=== PATIENT | female | born 1935 | race African-American/Black ===

== ENCOUNTER 2019-07-04 10:23 | Inpatient (IN) ==
[2019-07-04] MEDS: ALBUTEROL/IPRATROPIUM 3 ML NEB RESP TX PRN (13:40)
[2019-07-04] MEDS ORDERED: ONDANSETRON 4 MG/2 ML VIAL IV PRN (13:42)
[2019-07-04] MEDS ORDERED: ACETAMINOPHEN 325 MG TABLET PO PRN (13:42)
[2019-07-04] MEDS ORDERED: MORPHINE 4 MG/1 ML VIAL IV PRN ×2 (13:42→13:45)
[2019-07-04] MEDS ORDERED: cefOXitin 2,000 MG in SYRINGE 1 EACH IV ONE (13:42)
[2019-07-04] MEDS ORDERED: hydrALAZINE 20 MG/1 ML VIAL IV PRN (13:42)
[2019-07-04 15:08] LABS: Apearance,Urine CLOUDY (Clear); Bacteria,Urine Occasional /HPF (Few); Bilirubin,Urine Negative (Negative); Blood, Urine Small mg/dL (Negative); Glucose,Urine (UA) Negative (Negative); Ketones,Urine Negative (Negative); Mucus,Urine Occasional /LPF (Occasional); Nitrite,Urine Negative (Negative); Protein,Urine 100 MG/DL; RBC,Urine 1 /HPF (0-4); Urine Color Yellow (Yellow); Urine Specific Gravity 1.012 (1.001-1.035); Urine Urobilinogen < 2.0 EU/DL (0.2-1.0); WBC,Urine 1 /HPF (0-6)
[2019-07-04] MEDS ORDERED: propofoL 200 MG/20 ML VIAL IV ONE (16:00)
[2019-07-04] MEDS ORDERED: HYDROCORTISONE 100 MG VIAL ONE (16:01)
[2019-07-04] MEDS ORDERED: ETOMIDATE 40 MG/20 ML VIAL IV ONE (16:01)
[2019-07-04] MEDS ORDERED: LIDOCAINE 2% 5 ML VIAL ONE (16:01)
[2019-07-04] MEDS ORDERED: fentaNYL 100 MCG/2 ML VIAL ONE (16:01)
[2019-07-04] MEDS ORDERED: SEVOFLURANE 1 UNIT/15 MINUTE INH ONE (16:01)
[2019-07-04] MEDS ORDERED: PHENYLEPHRINE DRIP 20 MG/250 ML PREMIX IV ONE (16:01)
[2019-07-04] MEDS ORDERED: ROCURONIUM 100 MG/10 ML VIAL IV ONE (16:02)
[2019-07-04] MEDS ORDERED: LACTATED RINGERS 1,000 ML IV ONE (16:02)
[2019-07-04] MEDS: PANTOPRAZOLE 40 MG VIAL IV SCH (16:02)
[2019-07-04] MEDS ORDERED: SODIUM CHLORIDE 0.9% 1,000 ML IV ONE (16:02)
[2019-07-04] MEDS: LACTATED RINGERS 1,000 ML IV SCH (16:02)
[2019-07-04 16:42] LABS: ABG Base Excess -2.9 MMOL/L (-2.5-2.5); ABG Oxygen Saturation 99.7 % (95-100); ABG PCO2 39.3 MM HG (35-48); ABG TCO2 20.4 MMOL/L (23-27); Allen Test Positive; Pt O2 Delivery Device Ventilator
[2019-07-04 17:55] LABS: Basophils % 0.2 % (0.0-0.8); Hematocrit 31.2 VOL% (35.7-47.0); Hemoglobin 9.7 GM/DL (12.0-16.0); Immature Granulocytes % 1.2 %; Immature Granulocytes Absolute 0.15 #; Lymphocytes # 0.1 10*3/uL (1.4-4.0); Lymphocytes % 0.9 % (21.3-54.2); Mean Corpuscular HGB Conc 31.1 GM/DL (32-36); Mean Platelet Volume 12.3 FL (9.6-12.0); NRBC # 0.02 10*3/uL; Neutrophils % 95.7 % (38.7-73.9); Platelet Count 171 T/CUMM (130-400); Red Blood Count 3.32 MC/CUMM (3.8-5.5); Red Cell Distribution Width 14.5 % (9.3-17.3); White Blood Count 12.9 T/CUMM (4-12)
[2019-07-04 18:03] LABS: PT Patient Result 10.6 SECS (9.6-12.2)
[2019-07-04 18:15] LABS: Band Neutrophils 3 % (0-10); Lymphocytes 1 % (20-55); Platelet Estimate Normal; Segmented Neutrophils 95 % (50-85); Total Cells Counted 100
[2019-07-04 18:24] LABS: Bilirubin,Total 1.2 MG/DL (0.2-1.0); Osmolality,Calculated 298.1 MOS/KG (273-304); Total Protein 5.9 G/DL (6.4-8.3)
[2019-07-04] MEDS: MORPHINE 4 MG/1 ML VIAL IV PRN (23:20)
[2019-07-05] MEDS ORDERED: GLUCAGON 1 MG VIAL IM PRN (00:37)
[2019-07-05] MEDS: INSULIN REGULAR 100 UNIT/ML SUBCUT SCH ×5 (01:07→23:20)
[2019-07-05] MEDS: LACTATED RINGERS 1,000 ML IV SCH (02:33)
[2019-07-05 04:36] LABS: ABG Base Excess -2.4 MMOL/L (-2.5-2.5); ABG HCO3 22.2 MMOL/L (20-26); ABG Oxygen Saturation 97.6 % (95-100); ABG PCO2 37.3 MM HG (35-48); ABG PH 7.393 (7.35-7.45); ABG PO2 104.6 MM HG (80-95); ABG TCO2 23.4 MMOL/L (23-27); Allen Test Positive; Pt O2 Delivery Device Ventilator
[2019-07-05 04:49] LABS: Basophils % 0.2 % (0.0-0.8); Hematocrit 25.5 VOL% (35.7-47.0); Hemoglobin 8.1 GM/DL (12.0-16.0); Immature Granulocytes % 0.7 %; Immature Granulocytes Absolute 0.11 #; Lymphocytes # 0.1 10*3/uL (1.4-4.0); Lymphocytes % 0.7 % (21.3-54.2); Mean Corpuscular HGB Conc 31.8 GM/DL (32-36); Mean Corpuscular Volume 93.8 FL (87-102); Mean Platelet Volume 12.7 FL (9.6-12.0); Monocytes % 0.9 % (1.7-12.7); NRBC # 0.04 10*3/uL; Neutrophils % 97.5 % (38.7-73.9); Platelet Count 130 T/CUMM (130-400); Red Blood Count 2.72 MC/CUMM (3.8-5.5); Red Cell Distribution Width 14.9 % (9.3-17.3); White Blood Count 15.1 T/CUMM (4-12)
[2019-07-05 05:16] LABS: Albumin 2.2 G/DL (3.4-5.0); Bilirubin,Total 1.5 MG/DL (0.2-1.0); Calcium 7.5 MG/DL (8.5-10.1); Osmolality,Calculated 295.4 MOS/KG (273-304)
[2019-07-05 05:24] LABS: Band Neutrophils 8 % (0-10); Lymphocytes 3 % (20-55); Metamyelocytes 1 %; Nucleated Red Blood Cells 1 (0-5); Segmented Neutrophils 86 % (50-85); Total Cells Counted 100
[2019-07-05 05:25] LABS: Acanthocytes Few; Microcytosis 1+; Ovalocytes Few
[2019-07-05] MEDS ORDERED: SODIUM CHLORIDE 0.9% 1,000 ML IV SCH (08:00)
[2019-07-05] MEDS ORDERED: ENOXAPARIN 40 MG/0.4 ML SYRINGE SUBCUT SCH (09:00)
[2019-07-05] MEDS: ALBUTEROL/IPRATROPIUM 3 ML NEB RESP TX PRN (11:30)
[2019-07-05] MEDS ORDERED: RACEPINEPHRINE 0.5 ML NEB RESP TX PRN (11:41)
[2019-07-05] MEDS: DEXTROSE 10% 250 ML BAG IV PRN ×2 (12:04→15:02)
[2019-07-05] MEDS: PANTOPRAZOLE 40 MG VIAL IV SCH (14:01)
[2019-07-05] MEDS: DEXTROSE 5% NACL 0.45% 1,000 ML IV SCH (15:26)
[2019-07-05] MEDS ORDERED: FUROSEMIDE 40 MG/4 ML VIAL IV ONE (17:34)
[2019-07-05] MEDS: MORPHINE 4 MG/1 ML VIAL IV PRN (23:05)
[2019-07-06] MEDS: ALBUTEROL/IPRATROPIUM 3 ML NEB RESP TX PRN ×2 (01:00→19:15)
[2019-07-06 03:06] LABS: Basophils % 0.1 % (0.0-0.8); Hematocrit 27.4 VOL% (35.7-47.0); Hemoglobin 8.3 GM/DL (12.0-16.0); Immature Granulocytes % 1.9 %; Immature Granulocytes Absolute 0.31 #; Lymphocytes # 0.2 10*3/uL (1.4-4.0); Mean Corpuscular HGB Conc 30.3 GM/DL (32-36); Mean Corpuscular Volume 95.8 FL (87-102); Mean Platelet Volume 12.3 FL (9.6-12.0); Monocytes % 1.5 % (1.7-12.7); NRBC # 0.03 10*3/uL; Neutrophils % 95.5 % (38.7-73.9); Platelet Count 144 T/CUMM (130-400); Red Blood Count 2.86 MC/CUMM (3.8-5.5); Red Cell Distribution Width 14.9 % (9.3-17.3); White Blood Count 16.4 T/CUMM (4-12)
[2019-07-06 03:33] LABS: Osmolality,Calculated 290.2 MOS/KG (273-304)
[2019-07-06 04:01] LABS: Band Neutrophils 1 % (0-10); Lymphocytes 5 % (20-55); Myelocytes 2 %; Segmented Neutrophils 91 % (50-85); Total Cells Counted 100
[2019-07-06 04:03] LABS: Burr Cells 1+; Hypochromasia 1+; Platelet Estimate Adequate
[2019-07-06 04:04] LABS: Ovalocytes 1+; Schistocytes Few
[2019-07-06] MEDS: INSULIN REGULAR 100 UNIT/ML SUBCUT SCH ×3 (06:13→18:38)
[2019-07-06] MEDS: DEXTROSE 5% NACL 0.45% 1,000 ML IV SCH (06:13)
[2019-07-06] MEDS ORDERED: DILTIAZEM 50 MG/10 ML VIAL IV ONE (07:52)
[2019-07-06] MEDS ORDERED: FUROSEMIDE 40 MG/4 ML VIAL IV ONE (07:55)
[2019-07-06] MEDS ORDERED: FUROSEMIDE 40 MG/4 ML VIAL ONE (07:59)
[2019-07-06] MEDS: BUDESONIDE 0.5 MG/2 ML NEB RESP TX SCH ×2 (08:15→19:15)
[2019-07-06] MEDS: DORNASE ALFA 2.5 MG/2.5 ML VIAL RESP TX SCH ×2 (08:21→19:15)
[2019-07-06] MEDS: ENOXAPARIN 30 MG/0.3 ML SYRINGE SUBCUT SCH (08:36)
[2019-07-06] MEDS: metroNIDAZOLE INJ 500 MG in PREMIX 1 EACH IV SCH ×2 (11:30→16:39)
[2019-07-06] MEDS: PIPERACILLIN/TAZOBACTAM 3,375 MG in SODIUM CHLORIDE 0.9% 100 ML IV SCH (11:37)
[2019-07-06] MEDS: PANTOPRAZOLE 40 MG VIAL IV SCH (14:48)
[2019-07-07] MEDS: PIPERACILLIN/TAZOBACTAM 3,375 MG in SODIUM CHLORIDE 0.9% 100 ML IV SCH ×3 (00:18→23:57)
[2019-07-07] MEDS: metroNIDAZOLE INJ 500 MG in PREMIX 1 EACH IV SCH ×5 (00:18→23:56)
[2019-07-07] MEDS: INSULIN REGULAR 100 UNIT/ML SUBCUT SCH ×4 (00:18→18:47)
[2019-07-07 04:41] LABS: Basophils % 0.1 % (0.0-0.8); Eosinophils % 0.1 % (0.00-10.9); Immature Granulocytes % 1.8 %; Immature Granulocytes Absolute 0.26 #; Lymphocytes # 0.2 10*3/uL (1.4-4.0); Lymphocytes % 1.5 % (21.3-54.2); Mean Corpuscular HGB Conc 30.8 GM/DL (32-36); Mean Corpuscular Volume 94.3 FL (87-102); Mean Platelet Volume 12.4 FL (9.6-12.0); Monocytes % 2.2 % (1.7-12.7); NRBC # 0.03 10*3/uL; Neutrophils % 94.3 % (38.7-73.9); Red Blood Count 2.65 MC/CUMM (3.8-5.5); Red Cell Distribution Width 15.1 % (9.3-17.3); White Blood Count 14.4 T/CUMM (4-12)
[2019-07-07 04:42] LABS: Hemoglobin 7.7 GM/DL (12.0-16.0); Platelet Count 144 T/CUMM (130-400)
[2019-07-07 04:44] LABS: Osmolality,Calculated 302.5 MOS/KG (273-304)
[2019-07-07 05:23] LABS: Hypochromasia 1+; Lymphocytes 5 % (20-55); Ovalocytes Slight; Platelet Estimate Adequate; Segmented Neutrophils 95 % (50-85); Total Cells Counted 100
[2019-07-07] MEDS: DEXTROSE 5% NACL 0.45% 1,000 ML IV SCH ×2 (05:56→12:40)
[2019-07-07] MEDS: BUDESONIDE 0.5 MG/2 ML NEB RESP TX SCH ×2 (07:16→19:38)
[2019-07-07] MEDS: DORNASE ALFA 2.5 MG/2.5 ML VIAL RESP TX SCH ×2 (07:28→19:49)
[2019-07-07] MEDS: ENOXAPARIN 30 MG/0.3 ML SYRINGE SUBCUT SCH (08:29)
[2019-07-07] MEDS ORDERED: FUROSEMIDE 20 MG/2 ML VIAL IV PRN (09:12)
[2019-07-07] MEDS ORDERED: SODIUM CHLORIDE 0.9% 1,000 ML IV PRN (09:12)
[2019-07-07] MEDS: DEXTROSE 10% 250 ML BAG IV PRN (11:47)
[2019-07-07] MEDS: PANTOPRAZOLE 40 MG VIAL IV SCH (13:35)
[2019-07-07] MEDS: MORPHINE 4 MG/1 ML VIAL IV PRN (14:28)
[2019-07-07 21:49] LABS: Hematocrit 31.1 VOL% (35.7-47.0)
[2019-07-07 21:51] LABS: Hemoglobin 9.9 GM/DL (12.0-16.0)
[2019-07-08] MEDS: INSULIN REGULAR 100 UNIT/ML SUBCUT SCH ×4 (00:36→17:51)
[2019-07-08] MEDS: MORPHINE 4 MG/1 ML VIAL IV PRN (03:47)
[2019-07-08] MEDS: DEXTROSE 5% NACL 0.45% 1,000 ML IV SCH (05:13)
[2019-07-08] MEDS: metroNIDAZOLE INJ 500 MG in PREMIX 1 EACH IV SCH ×4 (05:14→22:53)
[2019-07-08 05:36] LABS: Basophils % 0.2 % (0.0-0.8); Eosinophils % 0.2 % (0.00-10.9); Hematocrit 26.2 VOL% (35.7-47.0); Hemoglobin 8.3 GM/DL (12.0-16.0); Immature Granulocytes % 1.6 %; Immature Granulocytes Absolute 0.21 #; Lymphocytes # 0.3 10*3/uL (1.4-4.0); Mean Corpuscular HGB Conc 31.7 GM/DL (32-36); Mean Corpuscular Volume 93.9 FL (87-102); Mean Platelet Volume 12.2 FL (9.6-12.0); Monocytes % 1.8 % (1.7-12.7); Neutrophils % 94.2 % (38.7-73.9); Platelet Count 119 T/CUMM (130-400); Red Blood Count 2.79 MC/CUMM (3.8-5.5); Red Cell Distribution Width 15.7 % (9.3-17.3)
[2019-07-08 05:54] LABS: Osmolality,Calculated 307.4 MOS/KG (273-304)
[2019-07-08] MEDS ORDERED: SILVER NITRATE STICK 1 EACH TOP ONE ×2 (06:05→06:21)
[2019-07-08 06:25] LABS: Hypochromasia 1+; Lymphocytes 3 % (20-55); Ovalocytes Slight; Platelet Estimate Decreased; Segmented Neutrophils 96 % (50-85); Total Cells Counted 100
[2019-07-08] MEDS: BUDESONIDE 0.5 MG/2 ML NEB RESP TX SCH ×2 (07:22→19:20)
[2019-07-08] MEDS: DORNASE ALFA 2.5 MG/2.5 ML VIAL RESP TX SCH ×2 (07:33→19:20)
[2019-07-08] MEDS ORDERED: FUROSEMIDE 20 MG/2 ML VIAL IV ONE (08:30)
[2019-07-08] MEDS: ENOXAPARIN 30 MG/0.3 ML SYRINGE SUBCUT SCH (08:57)
[2019-07-08] MEDS: FUROSEMIDE 40 MG/4 ML VIAL IV SCH (08:58)
[2019-07-08] MEDS: PIPERACILLIN/TAZOBACTAM 3,375 MG in SODIUM CHLORIDE 0.9% 100 ML IV SCH (11:48)
[2019-07-08] MEDS: PANTOPRAZOLE 40 MG VIAL IV SCH (13:18)
[2019-07-09] MEDS: INSULIN REGULAR 100 UNIT/ML SUBCUT SCH ×4 (00:12→18:41)
[2019-07-09] MEDS: PIPERACILLIN/TAZOBACTAM 3,375 MG in SODIUM CHLORIDE 0.9% 100 ML IV SCH ×2 (00:12→13:14)
[2019-07-09] MEDS: metroNIDAZOLE INJ 500 MG in PREMIX 1 EACH IV SCH ×4 (05:32→23:06)
[2019-07-09 06:31] LABS: Basophils % 0.2 % (0.0-0.8); Eosinophils # 0.1 10*3/uL (0.0-0.87); Eosinophils % 0.5 % (0.00-10.9); Hematocrit 23.5 VOL% (35.7-47.0); Hemoglobin 7.6 GM/DL (12.0-16.0); Immature Granulocytes % 2.3 %; Immature Granulocytes Absolute 0.28 #; Lymphocytes # 0.6 10*3/uL (1.4-4.0); Lymphocytes % 4.6 % (21.3-54.2); Mean Corpuscular HGB Conc 32.3 GM/DL (32-36); Mean Corpuscular Volume 93.3 FL (87-102); Mean Platelet Volume 11.7 FL (9.6-12.0); Monocytes % 2.6 % (1.7-12.7); Neutrophils % 89.8 % (38.7-73.9); Platelet Count 122 T/CUMM (130-400); Red Blood Count 2.52 MC/CUMM (3.8-5.5); Red Cell Distribution Width 15.6 % (9.3-17.3); White Blood Count 12.3 T/CUMM (4-12)
[2019-07-09 06:36] LABS: Calcium 8.4 MG/DL (8.5-10.1)
[2019-07-09 06:52] LABS: Eosinophils 1 % (0-10); Hypochromasia 1+; Lymphocytes 6 % (20-55); Ovalocytes Slight; Segmented Neutrophils 92 % (50-85); Total Cells Counted 100
[2019-07-09] MEDS: BUDESONIDE 0.5 MG/2 ML NEB RESP TX SCH ×2 (07:29→19:25)
[2019-07-09] MEDS: DORNASE ALFA 2.5 MG/2.5 ML VIAL RESP TX SCH ×2 (07:29→19:31)
[2019-07-09] MEDS: FUROSEMIDE 40 MG/4 ML VIAL IV SCH (09:06)
[2019-07-09] MEDS: ENOXAPARIN 30 MG/0.3 ML SYRINGE SUBCUT SCH (09:07)
[2019-07-09] MEDS ORDERED: TUBERCULIN SKIN TEST 0.1 ML SYRINGE INTRADERM ONE (15:00)
[2019-07-09] MEDS ORDERED: SODIUM CHLORIDE 0.9% 1,000 ML IV PRN ×2 (16:00→17:00)
[2019-07-09] MEDS: PANTOPRAZOLE 40 MG VIAL IV SCH (16:34)
[2019-07-10] MEDS: PIPERACILLIN/TAZOBACTAM 3,375 MG in SODIUM CHLORIDE 0.9% 100 ML IV SCH ×2 (00:21→12:15)
[2019-07-10] MEDS: INSULIN REGULAR 100 UNIT/ML SUBCUT SCH ×4 (02:07→18:28)
[2019-07-10] MEDS: metroNIDAZOLE INJ 500 MG in PREMIX 1 EACH IV SCH ×4 (04:54→23:38)
[2019-07-10 05:30] LABS: Basophils % 0.1 % (0.0-0.8); Eosinophils # 0.1 10*3/uL (0.0-0.87); Eosinophils % 0.5 % (0.00-10.9); Hematocrit 22.1 VOL% (35.7-47.0); Hemoglobin 6.7 GM/DL (12.0-16.0); Immature Granulocytes % 2.6 %; Lymphocytes # 0.6 10*3/uL (1.4-4.0); Lymphocytes % 5.6 % (21.3-54.2); Mean Corpuscular HGB Conc 30.3 GM/DL (32-36); Mean Corpuscular Volume 96.9 FL (87-102); Mean Platelet Volume 11.8 FL (9.6-12.0); Monocytes % 3.2 % (1.7-12.7); NRBC # 0.02 10*3/uL; Platelet Count 114 T/CUMM (130-400); Red Blood Count 2.28 MC/CUMM (3.8-5.5); Red Cell Distribution Width 15.2 % (9.3-17.3); White Blood Count 11.5 T/CUMM (4-12)
[2019-07-10 05:54] LABS: Calcium 8.3 MG/DL (8.5-10.1); Osmolality,Calculated 308.7 MOS/KG (273-304)
[2019-07-10] MEDS: BUDESONIDE 0.5 MG/2 ML NEB RESP TX SCH ×2 (07:56→19:24)
[2019-07-10] MEDS: DORNASE ALFA 2.5 MG/2.5 ML VIAL RESP TX SCH ×2 (08:04→19:24)
[2019-07-10] MEDS: FUROSEMIDE 40 MG/4 ML VIAL IV SCH (09:03)
[2019-07-10] MEDS: ENOXAPARIN 30 MG/0.3 ML SYRINGE SUBCUT SCH (09:03)
[2019-07-10] MEDS: PANTOPRAZOLE 40 MG VIAL IV SCH (16:09)
[2019-07-10 17:17] LABS: Hematocrit 29.6 VOL% (35.7-47.0)
[2019-07-10 17:19] LABS: Hemoglobin 9.4 GM/DL (12.0-16.0)
[2019-07-10] MEDS: ALBUTEROL/IPRATROPIUM 3 ML NEB RESP TX PRN (19:24)
[2019-07-11] MEDS: INSULIN REGULAR 100 UNIT/ML SUBCUT SCH ×4 (00:23→18:19)
[2019-07-11] MEDS: PIPERACILLIN/TAZOBACTAM 3,375 MG in SODIUM CHLORIDE 0.9% 100 ML IV SCH ×2 (00:31→13:01)
[2019-07-11] MEDS: metroNIDAZOLE INJ 500 MG in PREMIX 1 EACH IV SCH ×4 (05:34→22:44)
[2019-07-11 06:41] LABS: Basophils % 0.1 % (0.0-0.8); Eosinophils # 0.1 10*3/uL (0.0-0.87); Eosinophils % 0.6 % (0.00-10.9); Hematocrit 29.1 VOL% (35.7-47.0); Immature Granulocytes % 1.9 %; Lymphocytes # 0.6 10*3/uL (1.4-4.0); Lymphocytes % 5.4 % (21.3-54.2); Mean Corpuscular HGB Conc 30.9 GM/DL (32-36); Mean Corpuscular Volume 95.7 FL (87-102); Mean Platelet Volume 11.7 FL (9.6-12.0); Monocytes % 2.6 % (1.7-12.7); NRBC # 0.02 10*3/uL; Neutrophils % 89.4 % (38.7-73.9); Platelet Count 118 T/CUMM (130-400); Red Blood Count 3.04 MC/CUMM (3.8-5.5); White Blood Count 10.7 T/CUMM (4-12)
[2019-07-11 07:07] LABS: Calcium 8.5 MG/DL (8.5-10.1); Osmolality,Calculated 311.3 MOS/KG (273-304)
[2019-07-11] MEDS: BUDESONIDE 0.5 MG/2 ML NEB RESP TX SCH ×2 (07:28→19:19)
[2019-07-11] MEDS: DORNASE ALFA 2.5 MG/2.5 ML VIAL RESP TX SCH ×2 (07:33→19:19)
[2019-07-11] MEDS: FUROSEMIDE 40 MG TABLET PO SCH (09:19)
[2019-07-12] MEDS: PIPERACILLIN/TAZOBACTAM 3,375 MG in SODIUM CHLORIDE 0.9% 100 ML IV SCH (00:51)
[2019-07-12] MEDS: INSULIN REGULAR 100 UNIT/ML SUBCUT SCH ×2 (00:52→08:08)
[2019-07-12] MEDS: metroNIDAZOLE INJ 500 MG in PREMIX 1 EACH IV SCH (05:02)
[2019-07-12] MEDS: BUDESONIDE 0.5 MG/2 ML NEB RESP TX SCH (07:10)
[2019-07-12 07:13] LABS: Basophils % 0.1 % (0.0-0.8); Eosinophils # 0.1 10*3/uL (0.0-0.87); Eosinophils % 0.6 % (0.00-10.9); Hematocrit 27.2 VOL% (35.7-47.0); Hemoglobin 8.5 GM/DL (12.0-16.0); Immature Granulocytes % 1.3 %; Immature Granulocytes Absolute 0.16 #; Lymphocytes # 0.6 10*3/uL (1.4-4.0); Lymphocytes % 5.3 % (21.3-54.2); Mean Corpuscular HGB Conc 31.3 GM/DL (32-36); Mean Corpuscular Volume 94.4 FL (87-102); Mean Platelet Volume 11.6 FL (9.6-12.0); Monocytes % 2.5 % (1.7-12.7); Neutrophils % 90.2 % (38.7-73.9); Platelet Count 111 T/CUMM (130-400); Red Blood Count 2.88 MC/CUMM (3.8-5.5); Red Cell Distribution Width 15.1 % (9.3-17.3)
[2019-07-12] MEDS: DORNASE ALFA 2.5 MG/2.5 ML VIAL RESP TX SCH (07:15)
[2019-07-12 07:29] LABS: Calcium 8.3 MG/DL (8.5-10.1); Osmolality,Calculated 303.8 MOS/KG (273-304)
[2019-07-12 09:01] VITALS: BP 139/42
[2019-07-12] MEDS: FUROSEMIDE 40 MG TABLET PO SCH (09:03)
== END 2019-07-12 10:51 | DRG 329 ==
LOC: N.ICU 13:19 → SUATTDRO 13:19 → N.2E 07-08 16:15
PROVIDERS: ADMIT Family Medicine; ATTEND Internal Medicine